=== PATIENT | female | born 1940 | race Caucasian/White ===

== ENCOUNTER 2019-07-12 13:56 | Emergency (ER) | payer OTHER, MEDICAID ==
[~2019-07-12] VITALS: Ht 157.5 cm; Wt 67.3 kg
[2019-07-12 14:06] VITALS: Ht 157.5 cm; Wt 67.3 kg
[2019-07-12] MEDS ORDERED: TERBINAFINE PO (14:09)
[2019-07-12] MEDS ORDERED: ELIQUIS5 MG PO (14:10)
[2019-07-12] MEDS ORDERED: PACERONE200 MG PO (14:10)
[2019-07-12] MEDS ORDERED: ULTRAM50 MG PO (14:11)
[2019-07-12 14:42] LABS: BASOPHILS 0.4 % (0-2); EOSINOPHILS 1.2 % (0-7); HEMATOCRIT 41.9 % (36.0-48.0); IMMATURE GRANULOCYTES 0.1 % (0-5); LYMPHOCYTES 18.7 % (15-50); MCH 31.7 pg (26.0-34.0); MCHC 33.4 g/dL (31.0-37.0); MCV 94.8 fL (80.0-100.0); MEAN PLATELET VOLUME 8.7 fL (7.4-10.4); MONOCYTES 7.9 % (2-11); NEUTROPHILS 71.7 % (40-80); PLATELET COUNT 249 10x3/uL (130-400); RBC 4.42 10x6/uL (4.00-5.40); RDW 13.8 % (11.5-14.5); WBC 10.3 10x3/uL (4.8-10.8)
[2019-07-12 14:49] LABS: CALC OSMOLALITY 284 mosm/kg (275-300); CALCIUM 9.4 mg/dL (8.5-10.1); CARBON DIOXIDE 25.5 mmol/L (21.0-32.0); CHLORIDE - SERUM 104 mmol/L (98-107); CREATININE - SERUM 1.1 mg/dL (0.6-1.3); GLUCOSE 83 mg/dL (74-106); POTASSIUM - SERUM 4.4 mmol/L (3.5-5.1); SODIUM 139 mmol/L (136-145); UREA NITROGEN 34 mg/dL (7-18); eGFR NON AFRICAN AMERICAN 51 mL/min (90-120)
[2019-07-12 14:58] LABS: ALBUMIN 3.5 g/dL (3.4-5.0); ALKALINE PHOSPHATASE 65 U/L (46-116); ALT (SGPT) 25 U/L (10-68); AMYLASE - SERUM 36 U/L (25-115); BILIRUBIN - TOTAL 0.44 mg/dL (0.2-1.3); LIPASE 72 U/L (73-393); TROPONIN-I < 0.017 ng/mL (0.000-0.060)
[2019-07-12 15:34] LABS: COLOR YELLOW (YELLOW)
[2019-07-12 15:35] LABS: APPEARANCE CLEAR (CLEAR); BILIRUBIN NEGATIVE (NEGATIVE); GLUCOSE NEGATIVE (NEGATIVE); KETONE NEGATIVE (NEGATIVE); NITRITE NEGATIVE (NEGATIVE); PROTEIN NEGATIVE (NEGATIVE); UROBILINOGEN NORMAL (NORMAL)
[2019-07-12 15:37] LABS: BACTERIA FEW /hpf (NEGATIVE); EPITHELIAL CELLS OCC /hpf (0-5); RED CELLS - URINE 0-5 /hpf (0-5); WHITE CELLS - URINE 0-5 /hpf (NEGATIVE)
[2019-07-12 16:41] VITALS: BP 137/73
== END 2019-07-12 16:49 | disposition home or self-care (01) ==
LOC: D.ER 13:56
PROVIDERS: Family Medicine
DX: R10.9 Unspecified abdominal pain (principal); K94.03 Colostomy malfunction; R11.2 Nausea with vomiting, unspecified